=== PATIENT | female | born 1940 | race Caucasian/White ===

== ENCOUNTER 2020-10-17 12:32 | Outpatient (CLI) | payer MEDICARE, SELFPAY ==
--- NOTE | 2020-10-17 | ECHO_ITS ---
Patient Info Name: Rekha Carrasco Age: 80 years : 1940 Gender: Female Ht: 66 in Wt: 207 lbs BSA: 2.13 m2 HR: 54 bpm BP: 150 / 78 mmHg Heart Rhythm: Sinus Rhythm Exam Date: 10/17/2020 1:39 PM Exam Location: [facility] Patient Status: Outpatient Admit Date: 10/17/2020 Staff Ordering Physician: Koko, Neris GRIFFITHS Group Leader [employer] Processing: Heriberto Salazar, CHERYLE, RT Attending Provider: Koko, Neris GRIFFITHS Exam Type: CA echo doppler color flow Study Info Indications R60.9 - Edema, unspecified Complete two-dimensional, color flow and Doppler transthoracic echocardiogram is performed. Strain analysis performed. Summary 1. Complete two-dimensional, color flow and Doppler transthoracic echocardiogram is performed. 2. Left ventricular systolic function is normal, estimated at 55%. False tendon noted in LV. 3. There is mildly increased left ventricular wall thickness. 4. The left ventricular diastolic function is grade I diastolic dysfunction. 5. Right atrial chamber dimension is mildly enlarged. 6. There is no aortic valve stenosis. 7. There is mild mitral valve regurgitation. 8. There is trace tricuspid valve regurgitation. 9. No pulmonary hypertension, estimated pulmonary arterial systolic pressure is 17 mmHg. Left Ventricle Left ventricular chamber dimension is normal. Left ventricular systolic function is normal, estimated at 55%. False tendon noted in LV. There is mildly increased left ventricular wall thickness. The left ventricular diastolic function is grade I diastolic dysfunction. Global longitudinal strain is mildly elevated at -16 %. Right Ventricle Right ventricular chamber dimension is normal. Right ventricular systolic function is normal. Left Atria Left atrial chamber dimension is normal. Right Atria Right atrial chamber dimension is mildly enlarged. Aortic Valve The aortic valve is trileaflet. There is mild aortic valve sclerosis. There is no aortic valve stenosis. There is trace aortic valve regurgitation. Pulmonic Valve The pulmonic valve is not well visualized. There is trace pulmonic regurgitation. Mitral Valve The mitral valve has normal leaflets. There is mild mitral valve regurgitation. The mitral valve annulus is mildly calcified. Tricuspid Valve The tricuspid valve leaflets are normal. There is trace tricuspid valve regurgitation. No pulmonary hypertension, estimated pulmonary arterial systolic pressure is 17 mmHg. Pericardium/Pleural The pericardium appears epicardial fat pad. There is no pericardial effusion. Inferior Vena Cava Normal inferior vena cava with >50% collapse upon inspiration consistent with normal right atrial pressure, 5 mmHg. Aorta The aortic root size at the sinus of Valsalva is normal. Left Ventricular Outflow Tract Name Value Normal LVOT 2D LVOT Diameter 2.0 cm LVOT Doppler LVOT Peak Gradient 3 mmHg LVOT Mean Gradient 2 mmHg LVOT VTI 26 cm LVOT VTI/AV VTI Ratio 0.7 LVOT Stroke Volume
== END 2020-10-17 12:33 | disposition home or self-care (01) ==
PROVIDERS: PCP Nurse Practitioner Adult Health; Visit Provider Nurse Practitioner Adult Health
DX: R60.0 Localized edema (principal); I51.7 Cardiomegaly
CPT/HCPCS: 93306

== ENCOUNTER 2022-08-20 08:13 | Outpatient (CLI) | payer MEDICARE, SELFPAY ==
--- NOTE | ~2022-08-20 | MM_ITS ---
EXAMINATION: MM screening raul BI w paige HISTORY: Screening mammogram TECHNIQUE: Craniocaudal and mediolateral oblique 3-D tomosynthesis images were obtained and synthetic 2-D images were generated. Rotated lateral craniocaudal view of right breast and axillary tail view of left breast. CAD analysis was submitted and interpreted. COMPARISON: 11/15/2010 bilateral screening mammogram BREAST PARENCHYMAL COMPOSITION: There are scattered areas of fibroglandular density. FINDINGS: Stable fibroglandular asymmetry. Scattered bilateral benign calcifications. There is no mahsa dence of suspicious mass, calcification, or architectural distortion to suggest malignancy in either breast. There has been no suspicious interval change. IMPRESSION: 1. No mammographic evidence of malignancy. 2. Recommend routine screening mammography in one year. BI-RADS Category 2: Benign finding(s). Reviewed, dictated and finalized at location A. HOLOGIST SOCIAL
== END 2022-08-20 08:14 | disposition home or self-care (01) ==
LOC: ANHIMG 08:14
PROVIDERS: PCP Family Medicine; Visit Provider Family Medicine
DX: Z12.31 Encounter for screening mammogram for malignant neoplasm of breast (principal)
CPT/HCPCS: 77063; 77067

== ENCOUNTER 2022-11-20 08:25 | Outpatient (CLI) | payer MEDICARE, SELFPAY ==
--- NOTE | ~2022-11-20 | MR_ITS ---
MRI of the right knee Clinical history: Pain Technique: Coronal proton density and proton density-weighted images, sagittal proton-density and T2 fat-sat images, and axial proton-density fat-saturated images were acquired. Findings: Anterior and posterior cruciate ligaments are intact. Medial collateral ligament and the la teral collateral ligament complex are intact. Popliteus tendon is intact. There is intrasubstance degenerative signal of the medial meniscus, without definite tear. There is c omplex tearing of the anterior horn and body of the lateral meniscus, which are completely macerated and nearly entirely absent. There is high-grade chondromalacia the lateral joint line. There is mild chondromalacia the medial co mpartment. There is moderate to high-grade chondromalacia along the medial patellar facet. Small tric ompartmental osteophytes are present. Extensor mechanism is intact. Small joint effusion is present with small to moderate Dillard's cyst. Impression: Complex tearing of the anterior horn and body of the lateral meniscus, which are essentially complete ly absent/macerated. Tricompartmental osteoarthritis, as detailed above. Zninj-hk-iwthyutg Dillard's cyst with small joint effusion. Reviewed, dictated and finalized at location . Impression: Complex tearing of the anterior horn and body of the lateral meniscus, which ar e essentially completely absent/macerated. Tricompartmental osteoarthritis, as detailed above. Nyusw-hn-gggaxskj Dillard's cyst with small joint effusion.
== END 2022-11-20 08:26 | disposition home or self-care (01) ==
PROVIDERS: PCP Family Medicine; Visit Provider Family Medicine
DX: S83.271A Complex tear of lateral meniscus, current injury, right knee, initial encounter (principal); X58.XXXA Exposure to other specified factors, initial encounter; M17.11 Unilateral primary osteoarthritis, right knee; M71.21 Synovial cyst of popliteal space [Baker], right knee; M25.461 Effusion, right knee
CPT/HCPCS: 73721

== ENCOUNTER 2023-12-23 16:31 | Emergency (ER) | payer MEDICARE, SELFPAY ==
[2023-12-23] VITALS (16 sets, daily range): BP systolic 143–177; BP diastolic 46–72; PULSE 67–79; RESP 15–20; TEMP 36.2; O2SAT 97–100
--- NOTE | ~2023-12-23 | XR_ITS ---
XR chest 1V portable Ordering provider: Barbara Boyer MD History: 83 years Female with . Dizzy, HTN . Comparison: March 21, 2011 FINDINGS: MEDIASTINUM: The cardiac silhouette is not enlarged. LUNGS: No infiltrates, effusions or pneumothorax. OTHER: No free air under the diaphragm. Degenerative changes of the spine. IMPRESSION: No acute cardiopulmonary pathology. Reviewed, dictated and finalized at location A.
--- NOTE | 2023-12-23 17:10 | ECG_ITS ---
Test Date: 2023-12-23 17:33:08 Measurements Intervals [place] Rate: 65 P: 65 KS: 168 QRS: -31 QRSD: 105 T: 46 QT: 377 QTc: 393 Interpretive Statements SINUS RHYTHM LEFT AXIS DEVIATION PATTERN CONSISTENT WITH PULMONARY DISEASE BASELINE ARTIFACT- I, II, III, AVR, AVL, AVF, V1 BORDERLINE ECG No previous ECG available for comparison Electronically Signed On 12-23-2023 20:00:55 CDT by Heath Schilling D.O.
[2023-12-23 17:41] LABS: Basophils Percent Auto 0.4 % (0.2-1.2); Eosinophils Absolute Auto 0.1 K/mm3 (0-0.3); Eosinophils Percent Auto 1.5 % (0-4.4); Hematocrit 38.9 % (37.0-47.0); Hemoglobin 13.2 g/dL (12.0-15.0); Immature Granulocyte Absolute 0.02 K/mm3 (0.00-0.031); Immature Granulocyte Percent A 0.3 % (0-0.5); Lymphocytes Percent Auto 17.6 % (18.3-44.2); Mean Corpuscular HGB Conc 33.9 g/dl (32-36); Mean Corpuscular Hemoglobin 31.2 pg (26-34); Mean Platelet Volume 9.1 fl (7.4-10.4); Monocytes Absolute Auto 0.7 K/mm3 (0.1-0.6); Monocytes Percent Auto 8.7 % (2.6-8.5); Neutrophils Absolute Auto 5.7 K/mm3 (1.3-6.7); Neutrophils Percent Auto 71.5 % (45.5-73.1); Platelet Count Result 211 k/mm3 (150-375); Red Blood Count 4.23 M/mm3 (4.2-5.4); Red Cell Distribution Width 12.5 % (11.5-14.5); White Blood Count 7.9 K/mm3 (4.5-10.0)
[2023-12-23 17:51] LABS: Alanine Aminotransferase 15 U/L (6-35); Alkaline Phosphatase 96 U/L (38-126); Anion Gap 5 mmol/L (4-12); Aspartate Amino Transferase 29 U/L (14-36); Bilirubin,Total 0.7 mg/dL (0.2-1.3); Blood Urea Nitrogen 28 mg/dL (7-17); Calcium 9.1 mg/dL (8.4-10.2); Carbon Dioxide 28 mmol/L (22-30); Chloride 105 mmol/L (98-107); Estimated CRCL calculation 46 ml/min; Estimated Glomerular Filt Rate > 60; Glucose 95 mg/dL (65-110); Magnesium 1.5 mg/dL (1.6-2.3); Potassium 4.7 mmol/L (3.4-5.0); Sodium 138 mmol/L (137-145)
[2023-12-23] MEDS: MAGNESIUM SULF 2 GM/WATER 50ML 2 GM/50 ML BAG IVPB (19:12)
--- NOTE | 2023-12-23 19:24 | ED.SYNCOPE ---
HPI - Syncope General Chief Complaint: Dizziness Stated Complaint: dizziness Time Seen by Provider: 12/23/23 18:58 Source: patient and family Limitations: no limitations History of Present Illness HPI narrative: Patient is an 83-year-old female presents to the emergency department accompanied by family or dizziness. Patient has for the past 6 weeks she has been having intermittent episodes of dizziness which she describes as feeling she is going the pass out but also notes that sometimes when she moves her head really quickly she gets a sensation of the room moving which quickly goes away. Patient notes that this started back when she was getting treated for urinary tract infection and thought it was maybe related to that and the medication she was on and it seemed to get slightly better but then returned and she went to see her doctor and was told her thyroid levels were high as she was on medication and thought maybe was related to that event she went saw her doctor yesterday and noted that her ear canal has some wax in it so that was removed the patient notes that nothing is abruptly got worse thinking evaluation today rather just has not gone away and she feels well at rest. Patient denies any recent injuries or recent illness. Patient admits to sane fairly well hydrated. Patient denies any history of abnormal heart rhythms. Patient denies actually passing out. Patient denies chest pain, difficulty breathing, vision changes, numbness, weakness, difficulty swallowing, changes in speech, headache, abdominal pain, nausea, vomiting, diarrhea, melena, hematochezia. Patient notes that she was also on meclizine at 1 point over the past 6 weeks and then stopped taking it. Related Data Home Medications Medication Instructions Recorded Confirmed aspirin 325 mg tablet 325 mg PO DAILY 11/25/23 atorvastatin 10 mg tablet 10 mg PO DAILY 11/25/23 cholecalciferol (vitamin D3) 50 50 mcg PO DAILY 11/25/23 mcg (2,000 unit) capsule (Vitamin D3) esomeprazole magnesium 20 mg 20 mg PO DAILY 11/25/23 capsule,delayed release (Nexium) furosemide 20 mg tablet 20 mg PO QAM 11/25/23 lisinopril 20 1 tablet PO DAILY 11/25/23 mg-hydrochlorothiazide 12.5 mg tablet miwoiuvg-syl- 250 mg-dha 90 1 cap PO DAILY 11/25/23 mg-epa 160 ag-zuzw-bler-zeax capsule (Ocuvite Adult 50 Plus) hdbprwue-kzzdmvt-bujr-lutein tablet tablet PO DAILY 11/25/23 Allergies Allergy/AdvReac Type Severity Reaction Status Date / Time nitrofurantoin Allergy Severe Dizziness Verified 12/23/23 19:40 Review of Systems Review of Systems: A 10 system review of systems was completed on the patient and is negative except for what is stated in the HPI. Nursing and ancillary documentation was reviewed. PMFSH Past Medical History Medical History (Updated 12/23/23 @ 20:17 by Celso Lim DO) High cholesterol Hypertension Hypothyroid Surgical History Surgical History (Updated 11/25/23 @ 10:42 by Deidre Fonseca CMA) History of bladder surgery Social History Social History (Updated 11/25/23 @ 10:42 by Deidre Fonseca CMA) Smoking status: Never smoker Alcohol intake: never Substance use type: does not use Do You Feel Safe in your Home?: Yes Lack of Transportation: No Lack of Food: Never True Current Housing: I Have Housing Concerned About Future Housing: No Difficulty Paying for Meds: No Education: High School Diploma/GED Difficulty w/ Childcare or Family Care: No Living arrangements: with family Occupation/Education: retired Comments At time of signature, I have reviewed and agree with nursing past medical, surgical, social and family history unless otherwise noted. Please see the nursing chart for further information. There is no relevant family history pertinent to the presenting complaint. Exam Narrative: CONST: No acute distress. Well nourished. HENMT: Head is normocephalic and atraum
[2023-12-23 19:26] LABS: Appearance Urine Clear (Clear); Bacteria Urine None Seen /hpf; Bilirubin Urine Negative (Negative); Blood Urine Negative (Negative); Color Urine Yellow (Yellow); Glucose Urine UA Negative (Negative); Ketones Urine Negative (Negative); Leukocyte Esterase Ur Trace LEU/UL (Negative); Nitrate Urine Negative (Negative); Non Pathogenic Casts 0-2; Protein Urine Negative (Negative); RBC Urine 0-2 /hpf (0-2); Specific Grav Ur 1.011 (1.001-1.035); Squamous Epithelial Cell Urine None Seen /hpf (Few); WBC Urine 0-5 /hpf (0-3)
[2023-12-23 19:36] LABS: Add Urine Microscopic? YES
[2023-12-23] MEDS: MECLIZINE HCL 25 MG TABLET PO (19:41)
[2023-12-23] MEDS: SODIUM CHLORIDE 0.9% IV 1,000 ML 999 ML IV CONT (19:41)
== END 2023-12-23 21:22 | disposition home or self-care (01) ==
PROVIDERS: Emergency Medicine; Emergency Provider Student in an Organized Health Care Education/Training Program
DX: R55 Syncope and collapse (principal); E83.42 Hypomagnesemia; Z79.82 Long term (current) use of aspirin; E78.00 Pure hypercholesterolemia, unspecified; I10 Essential (primary) hypertension; E03.9 Hypothyroidism, unspecified
CPT/HCPCS: 36415; 71045; 80053; 81001; 83735; 85025; 93005; 96365; 99284; A9270; J3475; J7030

== ENCOUNTER 2024-04-12 09:49 | Outpatient (CLI) | payer MEDICARE, SELFPAY ==
--- NOTE | ~2024-04-12 | MM_ITS ---
EXAMINATION: MM screening raul BI w paige HISTORY: Screening TECHNIQUE: Craniocaudal and mediolateral oblique 3-D tomosynthesis images were obtained and synthetic 2-D images were generated. CAD analysis was submitted and interpreted. COMPARISON: Comparison to multiple prior studies sequentially, with oldest reviewed study dated 11/15. BREAST PARENCHYMAL COMPOSITION: Not dense: There are scattered areas of fibroglandular density. FINDINGS: There is a new focal asymmetry just lateral to the nipple on CC view without definite corre sponding abnormality by MLO view. The right breast is stable without evidence for malignancy. IMPRESSION: 1. New focal left breast asymmetry lateral to the nipple on CC view. 2. Additional mammographic views and possible breast ultrasound are recommended. BI-RADS Category 0: Incomplete: Needs additional imaging evaluation. Reviewed, dictated and finalized at location B. IMPRESSION: 1. New focal left breast asymmetry lateral to the nipple on CC view. 2. Additional mammographic views and possible breast ultrasound are recommended . BI-RADS Category 0: Incomplete: Needs additional imaging evaluation.
== END 2024-04-12 09:50 | disposition home or self-care (01) ==
LOC: ANHIMG 09:51
PROVIDERS: PCP Internal Medicine; Visit Provider Internal Medicine
DX: Z12.31 Encounter for screening mammogram for malignant neoplasm of breast (principal)
CPT/HCPCS: 36415; 77063; 77067; 80048; 84443

== ENCOUNTER 2024-04-12 10:44 | Outpatient (CLI) | payer MEDICARE, SELFPAY ==
[2024-04-12 13:09] LABS: Anion Gap 5 mmol/L (4-12); Blood Urea Nitrogen 25 mg/dL (7-17); Calcium 9.2 mg/dL (8.4-10.2); Carbon Dioxide 31 mmol/L (22-30); Chloride 102 mmol/L (98-107); Estimated Glomerular Filt Rate > 60; Glucose 92 mg/dL (65-110); Potassium 4.6 mmol/L (3.4-5.0); Sodium 138 mmol/L (137-145)
== END 2024-04-12 10:45 | disposition home or self-care (01) ==
LOC: ANHGOSHLAB 10:45
PROVIDERS: PCP Internal Medicine; Visit Provider Nurse Practitioner
DX: E03.9 Hypothyroidism, unspecified (principal); Z13.29 Encounter for screening for other suspected endocrine disorder
CPT/HCPCS: 36415; 80048; 84443

== ENCOUNTER 2024-04-28 14:13 | Outpatient (CLI) | payer MEDICARE, SELFPAY ==
--- NOTE | ~2024-04-28 | MMUS_ITS ---
EXAMINATION: MM diagnostic raul LT w paige, US breast LT limited HISTORY: Follow-up left breast asymmetry in the periareolar location. TECHNIQUE: Additional 3-D tomosynthesis images of the left breast were performed and synthetic 2-D im ages were generated. CAD analysis was submitted and interpreted. High resolution Limited left breast ultrasound was performed. COMPARISON: Comparison to multiple prior studies sequentially, with oldest reviewed study dated 11/01/2009. BREAST PARENCHYMAL COMPOSITION: Not dense: There are scattered areas of fibroglandular density. FINDINGS: MAMMOGRAPHIC FINDINGS: Left breast asymmetry compresses with spot views, likely superimposed fibroglandular tissue. No new m asses, calcifications or architectural distortion. ULTRASOUND: Limited left breast ultrasound: Normal heterogeneous echotexture without focal solid or cystic mass. Mildly prominent periareolar ducts. IMPRESSION: 1. No evidence for malignancy in the left breast. Benign findings. 2. Routine yearly screening mammogram and regular clinical breast examination are recommended. BI-RADS Category 1: Negative Reviewed, dictated and finalized at location B. ER INSULATION IMPRESSION: 1. No evidence for malignancy in the left breast. Benign findings. 2. Routine yearly screening mammogram and regular clinical breast examination a re recommended. BI-RADS Category 1: Negative
== END 2024-04-28 14:14 | disposition home or self-care (01) ==
LOC: ANHIMG 14:14
PROVIDERS: PCP Internal Medicine; Visit Provider Nurse Practitioner
DX: N64.89 Other specified disorders of breast (principal)
CPT/HCPCS: 76642; 77061; 77065; G0279

== ENCOUNTER 2025-03-13 13:33 | Outpatient (CLI) | payer MEDICARE, SELFPAY ==
--- OUTSIDE RECORDS SUMMARY | 2025-03-13 13:56 | XMS_ITS | Clinical Summary ---
Author Organization [facility] Address [address] [place] [address] Care Team Providers Care Swimming Pool Installer And Servicer Name Role Phone Megan Hawley APRN-HORSE RACER Primary Care Provider [phone] Source Comments [facility],non-owned Affiliates and Associated Physician Practices is amultiple site organization consisting of ambulatory clinics and hospital sitesin [place], [place], [place] and [place]. This disclosure is being madepursuant to the Care Everywhere program and may not contain all information available regarding this patient. Last updated 18.[facility] Allergies Active Allergy Reactions Criticality Noted Date Comments Ciprofloxacin Other 11/04/2022 tendonitis Medications * Be aware that medications may not be up to date on this document. Alwaysverify current medications with the patient. atenolol-chlor thalidone (TENORETIC 50) 50-25 MG tablet Take 1 (one) tablet by mouth once daily 1 Active atorvastatin (LIPITOR) 10 MG tablet 1 Active esomeprazole (NEXIUM) 20 MG capsule Take 1 (one) capsule by mouth daily before breakfast Active KLOR-CON M20 20 MEQ tablet Take 1 (one) tablet by mouth 2 times daily 1 Active Multiple Vitamins-Hyde als (OCUVITE PO) Take 1 tablet by mouth once daily Active Multiple Vitamins-Hyde als (CENTRUM SILVER) TABS Take 1 (one) tablet by mouth daily with food Active triamcinolone acetonide (Kenalog) 0.1 % ointmentIndica tions:Lichen sclerosus USE WITH THE NYSTATIN OINTMENT - APPLY TOPICALLY 3 TIMES A WEEK TO VULVAR SKIN 80 g 5 Active Calcium-Magnes ium-Vitamin D (Coral Calcium) 185-50-100 MG-MG-UNIT Take by mouth Activ e fluticasone propionate (Flonase) 50 MCG/ACT nasal spray SPRAY 1 SPRAY INTO EACH NOSTRIL EVERY 12 HOURS 5 Active furosemide (Lasix) 20 MG tablet Take 1 (one) tablet by mouth once daily 5 Active levothyroxine (Synthroid) 25 MCG tablet Take 1 (one) tablet by mouth once daily 4 Active LUTEIN PO Take 50 mcg by mouth Active meclizine (Antivert) 25 MG tablet TAKE 1 TABLET BY MOUTH TWICE A DAY NEEDED FOR DIZZINESS 4 Active nystatin (Mycostatin) 431796 UNIT/GM ointmentIndica tions:History of candidiasis,Vu lvar itching USE WITH THE TRIAMCINOLONE OINTMENT - APPLY TO VULVAR SKIN 3 TIMES PER WEEK. 30 g 5 5 Active Active Problems Problem Noted Date Diagnosed Date Dizziness 12/28/2023 Hypothyroidism 11/12/2023 Vertigo 10/20/2023 Dysuria 10/13/2023 Ankle edema 07/22/2023 Symptoms involving urinary system 01/19/2023 Osteoarthritis of both knees 01/08/2023 Arthralgia of both knees 10/23/2022 Muscle strain of left shoulder 10/23/2022 Allergic rhinitis 10/16/2020 Disorder of rotator cuff 10/16/2020 Essential hypertension 10/16/2020 Gastroesophageal reflux disease 10/16/2020 Herpes zoster 10/16/2020 Electrocardiogram abnormal 10/16/2020 Enthesopathy of hip region 10/16/2020 Hyperlipidemia 10/16/2020 Labyrinthitis 10/16/2020 Osteoarthritis of knee 10/16/2020 Pain in limb 10/16/2020 Vitamin D deficiency 10/16/2020 Positive D-dimer 10/16/2020 Palpitations 10/16/2020 Hypokalemia 10/02/2020 Resolved Problems Problem Noted Date Diagnosed Date Resolved Date Sinusitis 10/16/2020 11/13/2020 Encounters Date Type Department Care Team Description 01/23/2025 Travel from Last 3 Months Family History Medical History Relation Name Comments None Known Father None Known Maternal Grandfather None Known Maternal Grandmother Hypertension Mother None Known Paternal Grandfather None Known Paternal Grandmother Relation Name Status Comments Father Maternal Grandfather Maternal Grandmother Mother Paternal Grandfather Paternal Grandmother Social History Tobacco Use Types Packs/Day Years Used Date Smoking Tobacco: Never Smokeless Tobacco: Never Tobacco Cessation:Counseling Given: Not Answered Alcohol Use Standard Drinks/Week Comments Not Currently 0 (1 standard drink = 0.6 oz pur e alcohol) Comments No Sex and Gender Information Value Date Recorded Sex Assigned at Not on file 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 Gender Identity Not on file Sexual Orientation Not on file Last Filed Vital Signs Vital Sign Reading Time Taken Comments Blood Pressure 122/60 09/26/2024 2:07 PM CDT Pulse - - Temperature - - Respiratory Rate - - Oxygen Saturation - - Inhaled Oxygen Concentration - - Weight 89.8 kg (198 lb) 09/26/2024 2:07 PM CDT Height 167.6 cm (5' 6) 09/26/2024 2:07 PM CDT Body Mass Index 31.96 09/26/2024 2:07 PM CDT Plan of Treatment Upcoming Encounters Date Type Department Care Team (Late st Contact Info) Description 05/15/2025 3:00 PM REINFORCING METAL WORKER Office Visit [facility] - DIRECTOR DATA [address] [place] [id number] Maribell Rodriguez, YARDING AND FOLDING MACHINE OPERATOR-HORSE RACER [address] [address] Health Maintenance Due Date Last Done Comments BONE DENSITY TESTING 1940 DTAP/TDAP/TD VACCINES (1 - Tdap) 09/16/1958 PNEUMOCOCCAL VACCINE 50+ (1 of 1 - PCV) 09/16/1989 ZOSTER VACCINE (1 of 2) 09/16/1989 Respiratory Syncytial Virus (RSV) Vaccine Pt: or over 60 yrs (1 - 1-dose 75+ series) 09/16/2014 DEPRESSION SCREENING 06/22/2024 MEDICARE AWV CALENDAR YEAR 2024 COVID-19 VACCINE ( season) 2025 05/07/2021, 08/21/2020, 07/24/2020 INFLUENZA VACCINE (#1) 2025 2, 04/09/2021, 03/20/2020, Additional history exists HEPATITIS B VACCINE Aged Out No longe r eligible based on patient's age to complete this topic HIB VACCINE Aged Out No longer eligi ble based on patient's age to complete this topic HPV VACCINE Aged Out No longer eligi ble based on patient's age to complete this topic MENINGOCOCCAL (Group B) VACCINE SHARED DECISION-MAKING Aged Out No longer eligible based on patient's age to complete this topic MENINGOCOCCAL GROUPS A/C/Y/W VACCINE Aged Out No longer eligible based on patient's age to complete this topic Insurance [facility] MANAGED MEDICARE ADV [facility] MANAGED MEDICARE ADV Care Teams Swimming Pool Installer And Servicer Relationship Specialty Start Date End Date Megan Hawley APRN-TERRY [facility] AMY GIBBS [address] [place], [place] [address], [place] [address] PCP - General Nurse Practitioner 07/05/24
--- OUTSIDE RECORDS SUMMARY | 2025-03-13 13:56 | XMS_ITS | Clinical Summary ---
Author Organization [facility] [place] [address] Address [address] [place] [address] Care Team Providers Care Special Services Supervisor Name Role Phone Osmani Castro DO Primary Care Provider [phone] Megan Hawley NP Unavailable [phone] Allergies Active Allergy Reactions Criticality Noted Date Comments Ciprofloxacin Other (See comments) Low 11/04/2022 tendonitis Medications triamcinolone (KENALOG) 0.1 % ointment USE WITH THE NYSTATIN OINTMENT - APPLY TOPICALLY 3 TIMES A WEEK TO VULVAR SKIN 4 Active potassium chloride ER 10 mEq CR tablet 4 Active Klor-Con M20 20 mEq CR tablet Take 1 tablet (20 mEq total) by mouth 2 (two) times a day 1 Active nystatin ointment USE WITH THE TRIAMCINOLONE OINTMENT - APPLY TO VULVAR SKIN 2-3 TIMES PER WEEK. Active meclizine (ANTIVERT) 25 mg tablet TAKE 1 TABLET BY MOUTH TWICE A DAY NEEDED FOR DIZZINESS 4 Active lisinopril-hyd roCHLOROthiazi de (ZESTORETIC) 20-12.5 mg per tablet Take 1 tablet by mouth daily 4 Active levothyroxine (SYNTHROID) 25 mcg tablet Take 1 tablet (25 mcg total) by mouth daily [address] (NexIUM) 20 mg capsule Take 1 capsule (20 mg total) by mouth daily before breakfast Active ciprofloxacin (CIPRO) 500 mg tablet TAKE 1 TABLET BY MOUTH EVERY 12 HOURS DIRECTED FOR 5 DAYS 4 Active atorvastatin (LIPITOR) 10 mg tablet Take 1 tablet (10 mg total) by mouth daily Active atenoloL-chlor thalidone (TENORETIC) 50-25 mg per tablet Take 1 tablet by mouth daily 1 Active multivit-silver miner blasting ah-pbqi-baievb tablet Take 50 mcg by mouth Active calcium-mag oxide-vitamin D3 185-50-100 mg-mg-unit capsule Take by mouth Active Active Problems No known active problems Social History Tobacco Use Types Packs/Day Years Used Date Smoking Tobacco: Never Personal Safety Answer Date Recorded Getting School Help Needed Not on file 09/05 Comments Unknown Sex and Gender Information Value Date Recorded Sex Assigned at Not on file 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 Gender Identity Not on file Sexual Orientation Not on file Obstetrics History Last Filed Vital Signs Vital Sign Reading Time Taken Comments Blood Pressure 144/92 03/01/2024 1:07 PM CDT Pulse 70 03/01/2024 1:07 PM CDT Temperature - - Respiratory Rate - - Oxygen Saturation - - Inhaled Oxygen Concentration - - Weight 90.3 kg (199 lb) 03/01/2024 1:07 PM CDT Height 170.2 cm (5' 7) 03/01/2024 1:07 PM CDT Body Mass Index 31.17 03/01/2024 1:07 PM CDT Plan of Treatment Health Maintenance Due Date Last Done Comments Depression Screening 1940 Fall Risk Assessment 1940 Osteoporosis Screening-Bone Density Scan 1940 Hepatitis B Screening 09/16/1957 Well Visit 65+ 09/16/2004 Zoster Vaccine (2 of 3) 02/14/2008 12/20/2007 Covid-19 Vaccine (5 - 2024-2 6 season) 2025 07/29/2023, 05/07/2021, 08/21/2020, Additional history exists Influenza Vaccine (#1) 2025 3, 03/24/2022, 04/09/2021, Additional history exists DTaP/Tdap/Td Vaccine (3 - Td or Tdap) 11/08/2033 11/09/2023, 04/30/2011 Pneumococcal vaccine 65+ Completed 018, 08/21/2009, 01/24/2005 Insurance UHC MEDICARE ADVANTAGE UHC MEDICARE ADVANTAGE [place] [id number] Care Teams Special Services Supervisor Relationship Specialty Start Date End Date Osmani Castro DO PCP - General Internal Medicine 04/15/24 Megan Hawley NP [address] [place] [address] [place] [address] Nurse Practitioner Nurse Practitioner 04/15/24
[2025-03-13 19:12] LABS: Alanine Aminotransferase 15 U/L (6-35); Albumin Level 4.0 g/dL (3.5-5.1); Alkaline Phosphatase 108 U/L (38-126); Anion Gap 8 mmol/L (4-12); Aspartate Amino Transferase 30 U/L (14-36); Bilirubin,Total 0.8 mg/dL (0.2-1.3); Blood Urea Nitrogen 16 mg/dL (7-17); Calcium 9.2 mg/dL (8.4-10.2); Carbon Dioxide 30 mmol/L (22-30); Chloride 96 mmol/L (98-107); Cholesterol 196 mg/dL (0-200); Estimated Glomerular Filt Rate > 60; Glucose 92 mg/dL (65-110); HDL Direct 91 mg/dL; Potassium 4.3 mmol/L (3.4-5.0); Sodium 134 mmol/L (137-145); Total Protein 6.9 g/dL (6.3-8.2); Triglycerides 110 mg/dL (<150)
[2025-03-13 19:33] LABS: Hematocrit 41.4 % (37.0-47.0); Hemoglobin 13.3 g/dL (12.0-15.0); Immature Granulocyte Percent A 0.3 % (0-0.5); Lymphocytes Absolute Auto 1.41 K/mm3 (0.9-3.2); Mean Corpuscular HGB Conc 32.1 g/dl (32-36); Mean Corpuscular Hemoglobin 30.7 pg (26-34); Mean Corpuscular Volume 95.6 fl (80-100); Nucleated Red Blood Cells Absolute Auto 0.000 K/mm3 (0.0-0.012); Nucleated Red Blood Cells Perc 0.0 % (0.0-0.2); Platelet Count Result 224 k/mm3 (150-375); Red Blood Count 4.33 M/mm3 (4.2-5.4); White Blood Count 8.9 K/mm3 (4.5-10.0)
== END 2025-03-13 13:34 | disposition home or self-care (01) ==
LOC: ANHGOSHLAB 13:34
PROVIDERS: PCP Internal Medicine; Visit Provider Nurse Practitioner
DX: E78.00 Pure hypercholesterolemia, unspecified (principal); I10 Essential (primary) hypertension; E55.9 Vitamin D deficiency, unspecified; Z13.29 Encounter for screening for other suspected endocrine disorder
CPT/HCPCS: 36415; 80053; 80061; 82306; 85025

== ENCOUNTER 2025-03-21 08:30 | Outpatient (RCR) | payer MEDICARE, SELFPAY ==
--- NOTE | 2025-03-17 15:48 | OPREHPOC ---
Outpatient Therapy Plan of Care This is a Multidisciplinary Plan of Care that may contain components documented by all disciplines (PT, OT, and ST.) PT Problem 1 PT Problem #1 Knowledge Deficit PT Goal 1 Goal / Goal Update Bowdle with HEP Target Visit 2 PT Goal 2 Goal / Goal Update Demonstrate negative Fang-Halpike bilaterally Target Visit 4
--- NOTE | 2025-03-17 15:49 | PTOPEVAL1 ---
Assessment and note entered by Tenzin Caceres, PT Evaluation Information Assessment Status Evaluation ICD-10 Condition Codes (PT) BPPV H81.12 Onset 2 weeks Subjective Information Reports that she has been having issues with dizziness and balance for the last couple of weeks . She has had issues similar in the past and was treated for it. She is having most of her issues with laying in her bed at night and getting up in the morning. Spinning occurs when she lays on her left side and rolls to her right. She is currently not taking any medications for the dizziness due to her potassium levels. Reported Pain Level Pain Score 0: Self Report Assessment PT Clinical Summary Patient presented with positive signs and symptoms of R sided BPPV. Patient symptoms were resolved with performance of Karis maneuver x 2 to right side. Patient demonstrated understanding of home expectations. Will follow up in 1 week to ensure resolution of symptoms. Plan of Care Interventions Neuro Re-education,Therapeutic Activities PT Services Indicated Yes Treatment Frequency and 1x/week for 4 visits Duration These treatments will address the objective and functional deficits as defined above. The patient will be advanced safely and appropriately in order for the patient to progress towards his/her prior level of function. Additional exercises will be introduced and as well as a comprehensive home exercise program upon discharge, if needed, ?to ensure carryover of functional gains achieved in the clinic. This treatment plan has been reviewed and agreement upon by the patient.
--- NOTE | 2025-03-21 08:43 | PTOPDC ---
Assessment and note entered by Tenzin Caceres, PT Evaluation Information Assessment Status Discharge ICD-10 Condition Codes (PT) BPPV H81.12 Onset 2 weeks Subjective Information Reports that she has not had any issues since treatment. She has been sleeping in the bed on her left side with 2 pillows. Feels slightly off but has no problem maintain balance. Reported Pain Level Pain Score 0: Self Report Assessment PT Clinical Summary Patient met all goals with symptoms resolution at this time. Patient is suitable for discharge to [facility]. Plan of Care PT Services Indicated Yes
== END 2025-04-07 08:34 | disposition home or self-care (01) ==
LOC: ANHGOSHPT 08:30
PROVIDERS: PCP Internal Medicine; Visit Provider Nurse Practitioner
DX: H81.11 Benign paroxysmal vertigo, right ear (principal)
CPT/HCPCS: 95992; 97112; 97161

== ENCOUNTER 2025-06-05 12:49 | Outpatient (CLI) | payer MEDICARE, SELFPAY ==
--- NOTE | ~2025-06-05 | DEXA_ITS ---
Bone Density Report Name: SHERLYN SAMUELS Age: 84 Sex: Female Ethnicity: White Date of : 1940 Indication: postmenopausal; screening for osteoporosis; height loss; Referring Provider: Megan Hawley Study: Bone densitometry was performed. Exam Date: June 05, 2025 Accession number: [id number] Bone Density: Region BMD T-score Z-score Classification AP Spine(L1-L4) 1.291 2.2 5.1 Normal Femoral Neck (Left) 0.762 -0.8 1.7 Normal Total Hip (Left) 1.024 0.7 3.0 Normal Femoral Neck (Right) 1.098 2.2 4.8 Normal Total Hip (Right) 1.059 1.0 3.3 Normal Femoral Neck Mean 0.930 0.7 3.3 Normal Total Hip Mean 1.042 0.8 3.2 Normal World Health Organization criteria for BMD impression classify patients as: Normal (T-score at or above -1.0), Osteopenia (T-score between -1.0 and -2.5), or Osteoporosis (T-score at or below -2.5). 10-year Fracture Risk: FRAX not reported because: All T-scores for Spine Total, Hip Total, Femoral Neck at or above -1.0 Clinical Information Provided by Patient: Has used the following medications: Vitamin D, Calcium Patient maximum height was 67 Menopause Age: 49 No regular weight bearing exercise Does not regularly consume dairy products Drinks caffeinated beverages Onset of menses at age 14 Number of children 2 Impression: The patient has normal bone mass. Discussion: BONE DENSITY IS ABOVE THE MINIMUM DESIRABLE LEVEL AT ALL SKELETAL SITES TESTED. This patient?s bone mineral density is above the minimum desirable level (T-score -1.0 or better) at all sites measured. The patient should follow a healthful lifestyle (good nutrition with adequate calcium and vitamin D, and appropriate weight-bearing exercise). Follow-Up: Consider repeating this study in 5 years or sooner if there is some new clinical indication. Reported by: RANGEL on 06/05/2025 3:04:00 PM. Reviewed, dictated and finalized at location A.
--- NOTE | ~2025-06-05 | MM_ITS ---
EXAMINATION: MM screening raul BI w paige HISTORY: Screening TECHNIQUE: Craniocaudal and mediolateral oblique 3-D tomosynthesis images were obtained and synthetic 2-D images were generated. CAD analysis was submitted and interpreted. COMPARISON: Comparison to multiple prior studies sequentially, with oldest reviewed study dated , 10/24/2008 BREAST PARENCHYMAL COMPOSITION: Not Dense: There are scattered areas of fibroglandular density. FINDINGS: There is no evidence of suspicious mass, calcification, or architectural distortion to suggest malignancy in either breast. IMPRESSION: 1. No mammographic evidence of malignancy. 2. Recommend routine screening mammography in one year. BI-RADS Category 1: Negative Reviewed, dictated and finalized at location A. ODILE FARMER
== END 2025-06-05 12:50 | disposition home or self-care (01) ==
LOC: CHSIMG 12:50
PROVIDERS: PCP Nurse Practitioner; Visit Provider Nurse Practitioner
DX: Z12.31 Encounter for screening mammogram for malignant neoplasm of breast (principal); Z78.0 Asymptomatic menopausal state
CPT/HCPCS: 77063; 77067; 77080